=== PATIENT | male | born 1970 | race Caucasian/White ===

== ENCOUNTER → 2021-02-03 | Outpatient (CLI) | payer BC ==
[2021-02-03 11:14] LABS: BASO % 0.4 % (0.0-1.0); EOS % 0.4 % (0.0-3.0); HEMATOCRIT 46.4 % (42.0-52.0); HEMOGLOBIN 16.3 g/dl (13.5-17.5); LYMPH # 0.9 10^3/uL (1.5-5.0); LYMPH % 10.6 % (24.0-44.0); MEAN CORPUSCULAR HEMOGLOBIN 35.1 pg (27.0-33.0); MEAN CORPUSCULAR HGB CONC 35.1 g/dl (32.0-36.5); MONO # 0.8 10^3/uL (0.0-0.8); MONO % 9.3 % (2.0-8.0); NEUTROPHILS # 6.7 10^3/uL (1.5-8.5); NEUTROPHILS % 78.8 % (36.0-66.0); PLATELET COUNT, AUTOMATED 250 10^3/uL (150-450); RED BLOOD COUNT 4.64 10^6/uL (4.30-6.10); WHITE BLOOD COUNT 8.5 10^3/uL (4.0-10.0)
[2021-02-03 11:38] LABS: C REACTIVE PROTEIN QUANTITATIV 0.44 MG/DL (0.00-0.30); TOTAL PROTEIN 7.7 GM/DL (6.4-8.2)
[2021-02-03 12:04] LABS: ERYTHROCYTE SEDIMENTATION RATE 14 mm/hr (0-15)
== END ==
LOC: M LAB 10:06
PROVIDERS: ATTEND Orthopaedic Surgery
DX: S83.281D Other tear of lateral meniscus, current injury, right knee, subsequent encounter (principal); X58.XXXA Exposure to other specified factors, initial encounter; Y92.89 Other specified places as the place of occurrence of the external cause; Y93.89 Activity, other specified; Y99.8 Other external cause status

== ENCOUNTER → 2021-02-11 | Outpatient (CLI) | payer BC ==
[2021-02-14 12:33] LABS: IMMUNOTYPING SERUM IGM ABNORMAL (NORMAL); IMMUNOTYPING SERUM LAMBDA ABNORMAL (NORMAL)
== END ==
LOC: M LAB 14:03
PROVIDERS: ATTEND Orthopaedic Surgery
DX: S83.281D Other tear of lateral meniscus, current injury, right knee, subsequent encounter (principal); M25.561 Pain in right knee

== ENCOUNTER → 2021-03-02 | Outpatient (CLI) | payer BC ==
[~2021-03-02] MED LIST: PROHANCE 279.3MG/ML 15ML VIAL As Ordered ONE
--- NOTE | 2021-03-03 10:07 | REP ---
INDICATION: PAIN IN RIGHT KNEE. COMPARISON: None. TECHNIQUE: Multiple sequences obtained in the axial, coronal and sagittal planes. Pre and post contrast T1 fat-sat images performed, with the intravenous administration of 12 mL ProHance. FINDINGS: Menisci: Intact, no tear. Cruciate ligaments: There is mild ill-defined high signal on T2 weighted images in the anterior cruciate ligament suggesting a mild chronic sprain. Posterior cruciate ligament is intact. Collateral ligaments: Scattered increased signal is seen on T2 weighted images involving the lateral collateral ligament with moderate surrounding edema compatible with a chronic sprain/partial tear. Medial collateral ligament is intact. Extensor mechanism/patellar retinacula: Intact. Cartilage: There is moderately severe chondromalacia of the anterior aspect of the lateral femoral condyle as well as the femoral notch. There is moderate diffuse chondromalacia along the medial femoral condyle and tibial plateau, with relatively mild chondromalacia elsewhere globally. Bone marrow: Mild subchondral marrow edema is seen in the lateral femoral condyle and femoral notch, as well as medial tibial plateau. There is a benign appearing bone lesion centrally in the proximal tibia which is very well-defined, 2.9 x 2.2 x 1.6 cm. This demonstrates a sharp zone of transition with adjacent normal bone. Signal characteristics suggest a cartilaginous matrix than I suspect this represents an enchondroma. There is minimal peripheral curvilinear enhancement. Joint fluid: There is a moderate joint effusion. Popliteal region: There is a thin Tamez's cyst. There is moderate bursal fluid along the tendon of the medial head of the gastrocnemius posterior to the distal femur. There is suprapatellar bursal thickening and enhancement suggesting bursitis. There is mild fluid along the proximal tibiofibular articulation. Mild multiloculated fluid is seen at the posterior margin of the joint, as well as the outer margin of the medial collateral ligament. There is no suspicious enhancing soft tissue mass. IMPRESSION: Findings suggesting mild chronic sprain of anterior cruciate ligament. In the region of the palpable abnormality there are findings compatible with chronic sprain/partial tear of the lateral collateral ligament. Diffuse chondromalacia as discussed above, most significantly along the femoral condyles. Benign-appearing bone lesion proximal tibia likely represents an enchondroma. Moderate joint effusion. Thin Tamez's cyst. Moderate bursal fluid along the tendon of the medial head gastrocnemius posterior to the distal femur. Suprapatellar bursal thickening and enhancement suggesting bursitis. Mild multiloculated fluid at the posterior margin of the joint, as well as the outer margin the medial collateral ligament. <Electronically signed by Cesar Madsen > 03/03/21 [id number]
== END ==
LOC: M RAD 16:55
PROVIDERS: ATTEND Orthopaedic Surgery
DX: M94.261 Chondromalacia, right knee (principal); M25.461 Effusion, right knee; M71.21 Synovial cyst of popliteal space [Baker], right knee; M25.561 Pain in right knee
CPT/HCPCS: 73723; A9576

== ENCOUNTER → 2021-05-26 | Outpatient (REF) | payer BC ==
[2021-05-26 18:29] LABS: APPEARANCE, URINE HAZY (CLEAR); BACTERIA, URINE AUTO NEGATIVE (NEGATIVE); BILIRUBIN, URINE AUTO NEGATIVE (NEGATIVE); BLOOD, URINE BLOOD NEGATIVE (NEGATIVE); CALCIUM OXALATE CRYSTALS SMALL; COLOR, URINE YELLOW (YELLOW); GLUCOSE, URINE (UA) AUTO NEGATIVE (NEGATIVE); KETONE, URINE AUTO NEGATIVE (NEGATIVE); LEUKOCYTE ESTERASE, URINE AUTO NEGATIVE (NEGATIVE); MUCUS, URINE SMALL (NEGATIVE); NITRITE, URINE AUTO NEGATIVE (NEGATIVE); PROTEIN, URINE AUTO NEGATIVE (NEGATIVE); RBC, URINE AUTO 0 /HPF (0-3); SPECIFIC GRAVITY URINE AUTO 1.014 (1.002-1.035); SQUAMOUS EPITHELIAL CELL UR AU 0 /HPF (0-6); WBC, URINE AUTO 1 /HPF (0-3)
== END ==
LOC: M SMT 18:00
PROVIDERS: ATTEND Nurse Practitioner Women's Health
DX: R35.0 Frequency of micturition (principal)

== ENCOUNTER → 2021-09-21 | Outpatient (CLI) | payer BC | LOC: M PLALAB 15:21 | PROVIDERS: ATTEND Urology | DX: R97.20 Elevated prostate specific antigen [PSA] (principal) ==

== ENCOUNTER → 2022-03-27 | Outpatient (CLI) | payer BC ==
[~2022-03-27] MED LIST changes: +LISI10TA22 PO; -PROHANCE 279.3MG/ML 15ML VIAL As Ordered ONE
== END ==
LOC: M LABSMTC 09:35
PROVIDERS: ATTEND Anesthesiology
DX: Z01.818 Encounter for other preprocedural examination (principal); Z11.52 Encounter for screening for COVID-19

== ENCOUNTER 2022-03-31 10:57 | Day surgery (SDC) | payer BC ==
[~2022-03-31] VITALS: Ht 162.6 cm; Wt 57.5 kg
[~2022-03-31 10:57] MED LIST changes: +NS 1,000 ML IV ONE
[2022-03-31] MEDS ORDERED: LIDOCAINE 2% 100MG/5ML SDV (FOR ANES.) As Ordered ONE (11:55)
[2022-03-31] MEDS ORDERED: propofoL 200 MG/20 ML VIAL As Ordered ONE ×2 (11:55→13:47)
[2022-03-31] MEDS ORDERED: fentaNYL 100 MCG/2 ML INJECTION As Ordered ONE (12:35)
[2022-03-31 14:30] VITALS: BP 169/98
== END 2022-03-31 14:43 | disposition home or self-care (01) ==
LOC: M OPP 10:57
PROVIDERS: ATTEND Internal Medicine Gastroenterology
DX: Z12.11 Encounter for screening for malignant neoplasm of colon (principal); Z80.0 Family history of malignant neoplasm of digestive organs; K63.5 Polyp of colon; K57.30 Diverticulosis of large intestine without perforation or abscess without bleeding; K64.8 Other hemorrhoids; K22.89 Other specified disease of esophagus; K29.70 Gastritis, unspecified, without bleeding; R12 Heartburn; Z79.899 Other long term (current) drug therapy; Z88.5 Allergy status to narcotic agent
CPT/HCPCS: 43239; 45385; 88305; J3010

== ENCOUNTER → 2022-04-13 | Outpatient (CLI) | payer BC ==
[~2022-04-13] MED LIST changes: -NS 1,000 ML IV ONE
[2022-04-13 12:32] LABS: HEMATOCRIT 47.3 % (42.0-52.0); HEMOGLOBIN 16.5 g/dl (13.5-17.5); MEAN CORPUSCULAR HEMOGLOBIN 35.6 pg (27.0-33.0); MEAN CORPUSCULAR HGB CONC 34.9 g/dl (32.0-36.5); MEAN CORPUSCULAR VOLUME 101.9 fl (80.0-96.0); PLATELET COUNT, AUTOMATED 296 10^3/uL (150-450); RED BLOOD COUNT 4.64 10^6/uL (4.30-6.10); WHITE BLOOD COUNT 5.9 10^3/uL (4.0-10.0)
[2022-04-13 13:04] LABS: ALT/SGPT 74 U/L (12-78)
[2022-04-13 13:05] LABS: ALBUMIN 3.8 GM/DL (3.2-5.2); BILIRUBIN,DIRECT 0.2 MG/DL (0.0-0.2); BILIRUBIN,TOTAL 0.5 MG/DL (0.2-1.0); IRON (FE) 109 UG/DL (65-175); PERCENT SATURATION 43.1 % (19.7-50.0); TOTAL IRON BINDING CAPACITY 253 UG/DL (250-450); TOTAL PROTEIN 7.8 GM/DL (6.4-8.2)
[2022-04-13 13:24] LABS: HEPATITIS B SURFACE ANTIGEN NEGATIVE (NEGATIVE)
[2022-04-13 13:52] LABS: HEPATITIS C VIRUS ABY INDEX 0.1 INDEX (<0.8)
[2022-04-13 13:54] LABS: HEPATITIS B CORE ANTIBODY IGM NEGATIVE (NEGATIVE)
[2022-04-18 14:09] LABS: ANCA-ATYPICAL 1:40 titer (Neg:<1:20); ANTI-MITOCHONDRIAL ANTIBODY <20.0 Units (0.0-20.0); ANTINUCLEAR ANTIBODIES DIRECT Negative (Negative); CERULOPLASMIN 23.2 mg/dL (16.0-31.0); CYTOPLASMIC NEUTROP AB ANCA-C <1:20 titer (Neg:<1:20); LIVER-KIDNEY MICROSOMAL ABY <20.1 Units (0.0-20.0); PERINUCLEAR AB ANCA-P <1:20 titer (Neg:<1:20)
== END ==
LOC: M LAB 11:41
PROVIDERS: ATTEND Physician Assistant Medical
DX: I85.00 Esophageal varices without bleeding (principal)

== ENCOUNTER → 2022-05-18 | Outpatient (CLI) | payer BC | LOC: M RAD 06:38 | PROVIDERS: ATTEND Physician Assistant Medical | DX: R16.0 Hepatomegaly, not elsewhere classified (principal); R94.5 Abnormal results of liver function studies ==

== ENCOUNTER → 2022-10-12 | Outpatient (CLI) | payer BC | LOC: M RAD 06:23 | PROVIDERS: ATTEND Physician Assistant Medical | DX: R16.0 Hepatomegaly, not elsewhere classified (principal); R94.5 Abnormal results of liver function studies; R93.3 Abnormal findings on diagnostic imaging of other parts of digestive tract ==

== ENCOUNTER → 2023-05-15 | Outpatient (CLI) | payer BC | LOC: M RAD 06:53 | PROVIDERS: ATTEND Physician Assistant Medical | DX: K76.0 Fatty (change of) liver, not elsewhere classified (principal) ==

== ENCOUNTER → 2023-10-09 | Outpatient (CLI) | payer BC | LOC: M OUTALCOH 09:36 | PROVIDERS: ATTEND Psychiatry & Neurology Psychiatry | DX: F10.10 Alcohol abuse, uncomplicated (principal) ==

== ENCOUNTER 2023-10-22 09:47 | Outpatient (RCR) | payer BC | END 2023-10-25 | LOC: M OUTALCOH 09:47 | PROVIDERS: ATTEND Psychiatry & Neurology Psychiatry | DX: F10.20 Alcohol dependence, uncomplicated (principal); F17.200 Nicotine dependence, unspecified, uncomplicated ==

== ENCOUNTER 2023-11-14 10:21 | Outpatient (RCR) | payer MEDICAID, BC | END 2023-11-25 | LOC: M OUTALCOH 10:21 | PROVIDERS: ATTEND Psychiatry & Neurology Psychiatry | DX: F10.20 Alcohol dependence, uncomplicated (principal); F17.200 Nicotine dependence, unspecified, uncomplicated ==

== ENCOUNTER 2023-12-25 15:00 | Outpatient (RCR) | payer BC, MEDICAID | END 2023-12-26 | LOC: M OUTALCOH 15:00 | PROVIDERS: ATTEND Psychiatry & Neurology Psychiatry | DX: F10.20 Alcohol dependence, uncomplicated (principal); F17.200 Nicotine dependence, unspecified, uncomplicated ==

== ENCOUNTER → 2024-01-04 | Outpatient (CLI) | payer BC, MEDICAID ==
[~2024-01-04] MED LIST changes: +PROHANCE 279.3MG/ML 15ML VIAL ONE
== END ==
LOC: M PLAIMG 07:23
PROVIDERS: ATTEND Physician Assistant Medical
DX: K70.0 Alcoholic fatty liver (principal)
CPT/HCPCS: 74183; A9576

== ENCOUNTER → 2024-01-24 | Outpatient (RCR) | payer BC, MEDICAID ==
[~2024-01-24] MED LIST changes: -PROHANCE 279.3MG/ML 15ML VIAL ONE
== END ==
LOC: M OUTALCOH 01-01 16:00
PROVIDERS: ATTEND Psychiatry & Neurology Psychiatry
DX: F10.20 Alcohol dependence, uncomplicated (principal); F17.200 Nicotine dependence, unspecified, uncomplicated

== ENCOUNTER 2024-02-21 10:30 | Outpatient (RCR) | payer BC, MEDICAID | END 2024-02-24 | LOC: M OUTALCOH 10:30 | PROVIDERS: ATTEND Psychiatry & Neurology Psychiatry | DX: F10.20 Alcohol dependence, uncomplicated (principal); F17.200 Nicotine dependence, unspecified, uncomplicated ==

== ENCOUNTER 2024-03-20 09:00 | Outpatient (RCR) | payer BC, MEDICAID | END 2024-03-25 | LOC: M OUTALCOH 09:00 | PROVIDERS: ATTEND Psychiatry & Neurology Psychiatry | DX: F10.20 Alcohol dependence, uncomplicated (principal); F17.200 Nicotine dependence, unspecified, uncomplicated ==

== ENCOUNTER → 2024-04-25 | Outpatient (RCR) | payer BC, MEDICAID | LOC: M OUTALCOH 03-31 14:57 | PROVIDERS: ATTEND Psychiatry & Neurology Psychiatry | DX: F10.20 Alcohol dependence, uncomplicated (principal); F17.200 Nicotine dependence, unspecified, uncomplicated ==

== ENCOUNTER 2024-05-19 16:00 | Outpatient (RCR) | payer BC, MEDICAID | END 2024-05-25 | LOC: M OUTALCOH 16:00 | PROVIDERS: ATTEND Psychiatry & Neurology Psychiatry | DX: F10.20 Alcohol dependence, uncomplicated (principal); F17.200 Nicotine dependence, unspecified, uncomplicated ==

== ENCOUNTER 2024-06-09 16:00 | Outpatient (RCR) | payer BC, MEDICAID | END 2024-06-25 | LOC: M OUTALCOH 16:00 | PROVIDERS: ATTEND Psychiatry & Neurology Psychiatry | DX: F10.20 Alcohol dependence, uncomplicated (principal); F17.200 Nicotine dependence, unspecified, uncomplicated ==

== ENCOUNTER 2024-07-23 16:00 | Outpatient (RCR) | payer BC, MEDICAID | END 2024-07-26 | LOC: M OUTALCOH 16:00 | PROVIDERS: ATTEND Psychiatry & Neurology Psychiatry | DX: F10.20 Alcohol dependence, uncomplicated (principal); F17.200 Nicotine dependence, unspecified, uncomplicated ==

== ENCOUNTER 2024-08-21 16:00 | Outpatient (RCR) | payer BC, MEDICAID | END 2024-08-25 | LOC: M OUTALCOH 16:00 | PROVIDERS: ATTEND Psychiatry & Neurology Psychiatry | DX: F10.20 Alcohol dependence, uncomplicated (principal); F17.200 Nicotine dependence, unspecified, uncomplicated ==

== ENCOUNTER → 2025-01-02 | Outpatient (CLI) | payer BC, MEDICAID | LOC: M OUTALCOH 09:35 | PROVIDERS: ATTEND Psychiatry & Neurology Psychiatry | DX: F10.20 Alcohol dependence, uncomplicated (principal); F17.200 Nicotine dependence, unspecified, uncomplicated ==

== ENCOUNTER → 2025-01-23 | Outpatient (RCR) | payer BC, MEDICAID | LOC: M OUTALCOH 01-14 13:01 | PROVIDERS: ATTEND Psychiatry & Neurology Psychiatry | DX: F10.20 Alcohol dependence, uncomplicated (principal); F17.200 Nicotine dependence, unspecified, uncomplicated ==

== ENCOUNTER → 2025-01-28 | Outpatient (REF) | LOC: M PLAIMG 12:15 | PROVIDERS: ATTEND Internal Medicine | DX: S82.899D Other fracture of unspecified lower leg, subsequent encounter for closed fracture with routine healing (principal); Z98.890 Other specified postprocedural states ==

== ENCOUNTER → 2025-02-23 | Outpatient (RCR) | payer BC, MEDICAID | LOC: M OUTALCOH 01-26 13:36 | PROVIDERS: ATTEND Psychiatry & Neurology Psychiatry | DX: F10.20 Alcohol dependence, uncomplicated (principal); F17.200 Nicotine dependence, unspecified, uncomplicated ==

== ENCOUNTER → 2025-03-05 | Outpatient (CLI) | payer BC, MEDICAID | LOC: M PLARAD 09:36 | PROVIDERS: ATTEND Physician Assistant Medical | DX: K70.0 Alcoholic fatty liver (principal); R16.0 Hepatomegaly, not elsewhere classified; R93.3 Abnormal findings on diagnostic imaging of other parts of digestive tract; K76.0 Fatty (change of) liver, not elsewhere classified ==

== ENCOUNTER 2025-03-19 07:56 | Outpatient (RCR) | payer BC, MEDICAID ==
[2025-03-23] MEDS ORDERED: PANT20TA6 PO (10:22)
[2025-03-23] MEDS ORDERED: MAGN200T PO (10:22)
[2025-03-23] MEDS ORDERED: POTA99CA2 PO (10:22)
[2025-03-23] MEDS ORDERED: DISU1TAB7 PO (10:22)
[2025-03-23] MEDS ORDERED: THIA100T7 PO (10:22)
[2025-03-23] MEDS ORDERED: VITA100093 PO (10:22)
[2025-03-23] MEDS ORDERED: BUPR-766 PO (10:22)
[2025-03-23] MEDS ORDERED: NAPR-855 PO (10:22)
[2025-03-23] MEDS ORDERED: ERGO500029 PO (10:22)
[2025-03-23] MEDS ORDERED: CYAN500T14 PO (10:22)
== END 2025-03-25 ==
LOC: M OUTALCOH 07:56
PROVIDERS: ATTEND Psychiatry & Neurology Psychiatry
DX: F10.20 Alcohol dependence, uncomplicated (principal); F17.200 Nicotine dependence, unspecified, uncomplicated

== ENCOUNTER 2025-04-06 10:36 | Day surgery (SDC) | payer BC, MEDICAID ==
[~2025-04-06] VITALS: Ht 162.6 cm; Wt 61.5 kg
[~2025-04-06 10:36] MED LIST changes: +BUPR-766 PO; +CYAN500T14 PO; +DISU1TAB7 PO; +ERGO500029 PO; +LIDOCAINE 2% 100MG/5ML SDV (FOR ANES.) As Ordered ONE; +MAGN200T PO; +NAPR-855 PO; +PANT20TA6 PO; +POTA99CA2 PO; +THIA100T7 PO; +VITA100093 PO; +propofoL 500 MG/50 ML VIAL As Ordered ONE
[2025-04-06] MEDS ORDERED: fentaNYL 100 MCG/2 ML INJECTION As Ordered ONE (13:15)
[2025-04-06] MEDS ORDERED: propofoL 200 MG/20 ML VIAL As Ordered ONE (13:48)
[2025-04-06 13:54] VITALS: TEMP 98.3
[2025-04-06 14:15] VITALS: BP 143/86; O2SAT 99
== END 2025-04-06 14:24 | disposition home or self-care (01) ==
LOC: M OPP 10:36
PROVIDERS: ATTEND Internal Medicine Gastroenterology
DX: Z12.11 Encounter for screening for malignant neoplasm of colon (principal); K57.30 Diverticulosis of large intestine without perforation or abscess without bleeding; K64.8 Other hemorrhoids; K22.89 Other specified disease of esophagus; K76.0 Fatty (change of) liver, not elsewhere classified; I10 Essential (primary) hypertension; Z86.0100 Personal history of colon polyps, unspecified; Z12.89 Encounter for screening for malignant neoplasm of other sites; F17.210 Nicotine dependence, cigarettes, uncomplicated; Z79.899 Other long term (current) drug therapy; Z88.8 Allergy status to other drugs, medicaments and biological substances
CPT/HCPCS: 43239; 45378; 88305; J3010

== ENCOUNTER 2025-06-15 16:00 | Outpatient (RCR) | payer BC, MEDICAID ==
[~2025-06-15 16:00] MED LIST changes: -LIDOCAINE 2% 100MG/5ML SDV (FOR ANES.) As Ordered ONE; -propofoL 500 MG/50 ML VIAL As Ordered ONE
== END 2025-06-25 ==
LOC: M OUTALCOH 16:00
PROVIDERS: ATTEND Psychiatry & Neurology Psychiatry
DX: F10.20 Alcohol dependence, uncomplicated (principal); F17.200 Nicotine dependence, unspecified, uncomplicated

== ENCOUNTER 2025-07-20 08:50 | Outpatient (RCR) | payer BC, MEDICAID | END 2025-07-26 | LOC: M OUTALCOH 08:50 | PROVIDERS: ATTEND Psychiatry & Neurology Psychiatry | DX: F10.20 Alcohol dependence, uncomplicated (principal); F17.200 Nicotine dependence, unspecified, uncomplicated ==

== ENCOUNTER 2025-08-14 15:23 | Outpatient (RCR) | payer BC, MEDICAID | END 2025-08-25 | LOC: M OUTALCOH 15:23 | PROVIDERS: ATTEND Psychiatry & Neurology Psychiatry | DX: F10.20 Alcohol dependence, uncomplicated (principal); F17.200 Nicotine dependence, unspecified, uncomplicated ==

== ENCOUNTER → 2025-09-25 | Outpatient (RCR) | payer BC, MEDICAID | LOC: M OUTALCOH 08-28 14:30 | PROVIDERS: ATTEND Psychiatry & Neurology Psychiatry | DX: F10.20 Alcohol dependence, uncomplicated (principal); F17.200 Nicotine dependence, unspecified, uncomplicated ==

== ENCOUNTER 2025-10-16 15:00 | Outpatient (RCR) | payer BC, OTHER | END 2025-10-25 | LOC: M OUTALCOH 15:00 | PROVIDERS: ATTEND Psychiatry & Neurology Psychiatry | DX: F10.20 Alcohol dependence, uncomplicated (principal); F17.200 Nicotine dependence, unspecified, uncomplicated ==

== ENCOUNTER 2025-11-18 14:45 | Outpatient (RCR) | payer BC, MEDICAID | END 2025-11-25 | LOC: M OUTALCOH 14:45 | PROVIDERS: ATTEND Psychiatry & Neurology Psychiatry | DX: F10.20 Alcohol dependence, uncomplicated (principal); F17.200 Nicotine dependence, unspecified, uncomplicated ==